=== PATIENT | female | born 1960 | race Caucasian/White ===

== ENCOUNTER 2017-11-15 10:30 | Inpatient (IN) | payer OTHER ==
[~2017-11-15] VITALS: Ht 170.2 cm; Wt 95.3 kg
[2017-11-15] MEDS ORDERED: SYNTHROID50 MCG PO (14:27)
[2017-11-15] MEDS ORDERED: GLIPIZIDE ER10 MG PO (14:27)
[2017-11-15] MEDS ORDERED: ACTOS15 MG PO (14:27)
[2017-11-15] MEDS ORDERED: SIMVASTATIN20 MG PO (14:28)
[2017-11-15] MEDS ORDERED: FORTAMET1000 MG PO (14:29)
[2017-11-15] MEDS ORDERED: LOZARTAN (14:30)
[2017-11-15] MEDS ORDERED: PROVENTIL HFA6.7 GM IH (14:31)
[2017-11-15] MEDS ORDERED: BREO ELLIPTA I1 EACH IH (14:31)
[2017-11-28] MEDS ORDERED: XARELTO10 MG PO (07:54)
[2017-11-28] MEDS ORDERED: DUI500 PO (07:54)
[2017-11-28] MEDS ORDERED: PERCOCET 5-3251 EACH PO (07:54)
== END 2017-11-28 17:07 | DRG 470 ==
LOC: SURH 11-22 10:30 → O/R 11-25 05:40 → SURH 11-25 10:49
PROVIDERS: Orthopaedic Surgery
PROC: 0MNN0ZZ Release Right Knee Bursa and Ligament, Open Approach (ICD-10-PCS; 2017-11-25)
PROC: 3E0F7GC Introduction of Other Therapeutic Substance into Respiratory Tract, Via Natural or Artificial Opening (ICD-10-PCS; 2017-11-25)
PROC: 0SRC0J9 Replacement of Right Knee Joint with Synthetic Substitute, Cemented, Open Approach (ICD-10-PCS; principal; 2017-11-25 06:45)
DX: M17.11 Unilateral primary osteoarthritis, right knee (principal); E66.01 Morbid (severe) obesity due to excess calories; M81.0 Age-related osteoporosis without current pathological fracture; E11.9 Type 2 diabetes mellitus without complications; J45.20 Mild intermittent asthma, uncomplicated; E03.8 Other specified hypothyroidism; I11.9 Hypertensive heart disease without heart failure